=== PATIENT | female | born 1975 | race Caucasian/White ===

== ENCOUNTER → 2019-10-24 | Outpatient (CLI) | payer MEDICAID | LOC: M.LAB 15:52 | PROVIDERS: ATTEND Internal Medicine Gastroenterology | DX: Z01.812 Encounter for preprocedural laboratory examination (principal); K51.90 Ulcerative colitis, unspecified, without complications; Z11.59 Encounter for screening for other viral diseases ==

== ENCOUNTER 2020-03-27 14:55 | Emergency (ER) | payer MEDICAID ==
[~2020-03-27] VITALS: Ht 149.9 cm; Wt 50.8 kg
[2020-03-27 15:03] VITALS: BP 112/62
[2020-03-27] MEDS ORDERED: REMICADE 1100 MG/VIA (15:06)
[2020-03-27] MEDS ORDERED: LIDOCAINE VISC100 ML SWISH&SPIT (15:15)
[2020-03-27] MEDS ORDERED: CLEOCIN HCL150 MG PO (15:15)
== END 2020-03-27 15:23 | disposition home or self-care (01) ==
LOC: M.ERS 14:55
DX: K04.7 Periapical abscess without sinus (principal)